=== PATIENT | male | born 1995 | race Caucasian/White ===

== ENCOUNTER 2018-03-27 18:15 | Emergency (ER) | payer OTHER, MEDICAID ==
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
[2018-03-27] MEDS ORDERED: IBUPROFEN 600 MG TAB PO ONE (19:00)
[2018-03-27] MEDS ORDERED: HYDROCOD/APAP 5/325 PREPACK#6 BTL TAKEHOME ONE (21:13)
[2018-03-27] MEDS ORDERED: DEXAMETHASONE 4 MG TAB PO ONE (21:13)
[2018-03-27 22:06] VITALS: BP 120/65
== END 2018-03-27 22:03 | disposition home or self-care (01) ==
DX: S16.1XXA Strain of muscle, fascia and tendon at neck level, initial encounter (principal); M25.511 Pain in right shoulder; V49.49XA Driver injured in collision with other motor vehicles in traffic accident, initial encounter; Y92.410 Unspecified street and highway as the place of occurrence of the external cause; Y93.9 Activity, unspecified
CPT/HCPCS: L0172